=== PATIENT | female | born 2000 | race Two or more races ===

== ENCOUNTER 2021-10-13 02:39 | Emergency (ER) | payer MEDICAID, OTHER ==
[~2021-10-13] VITALS: Ht 152.4 cm; Wt 75.7 kg
[2021-10-13 02:42] VITALS: BP 150/81
[2021-10-13 03:29] LABS: Urine Bacteria FEW /hpf (None Seen); Urine Blood Negative /uL (Negative); Urine Specific Gravity 1.008 (1.001-1.035); Urine WBC 2 /hpf (0 - 5)
== END 2021-10-13 07:30 | disposition home or self-care (01) ==
LOC: ER 02:41
DX: S09.8XXA Other specified injuries of head, initial encounter (principal); Z32.02 Encounter for pregnancy test, result negative; V86.59XA Driver of other special all-terrain or other off-road motor vehicle injured in nontraffic accident, initial encounter; Y93.89 Activity, other specified; Y92.89 Other specified places as the place of occurrence of the external cause; Y99.8 Other external cause status
CPT/HCPCS: 81001; 81025